=== PATIENT | female | born 1930 | race Caucasian/White ===

== ENCOUNTER 2017-12-07 18:46 | Inpatient (IN) ==
[2017-12-07] MEDS ORDERED: 0.9 % Sodium Chloride 500 ML IVC ONE ×2 (19:11→21:02)
--- NOTE | 2017-12-07 19:29 | Emergency Department Note ---
Disposition Clinical Impression: Pulmonary embolus Disposition: Admitted As Inpatient Condition: Fair Time of Disposition: 21:35 General Adult HPI - General Chief complaint: ED Dizziness Stated complaint: fell, SOB Time Seen by Provider: 12/07/17 18:58 Source: patient Limitations: altered mental status Nursing Notes Reviewed: Yes Vital Signs Reviewed: Yes - History of Present Illness HPI Narrative: Ms. Story was getting ready for bed tonight and bending over to get her night gown and she felt dizzy and fell. Since the fall she has had some right rib pain. She denies hitting her head or any other pain. She is a fair historian who is somewhat hard of hearing and appears to have possibly some underlying dementia as well. She can state her name but does not know the year. She does know her location and who the president is. She is not sure how long she has [facility] She believe she wears oxygen at home and that she might have a heart condition for which she takes a pill. She has had some mild chest pressure and a mild headache as well. She denies any palpitations abdominal pain cough fever chills nausea vomiting or diarrhea. She tells me that she has been chronically short of breath and no worse in recent days. Pain Scale: 0 - Related Data Home Medications Medication Instructions Recorded Confirmed Ascorbate Calcium [Vitamin C] 500 mg PO BID 12/07/17 12/07/17 Aspirin [Lo-Dose Aspirin EC] 81 mg PO DAILY 12/07/17 12/07/17 Cholecalciferol (D-3) [Vitamin D] 2,000 unit PO DAILY 12/07/17 12/07/17 Cyanocobalamin (Vitamin B-12) 100 mcg PO DAILY 12/07/17 12/07/17 [Vitamin B-12] Escitalopram [Lexapro] 20 mg PO DAILY 12/07/17 12/07/17 HYDROcodone/Acet 5/325 mg [[place] 1 tab PO BID 12/07/17 12/07/17 5-325 mg] Ipratropium/Albuterol Neb [Duoneb] 3 ml IH Q4HR 12/07/17 12/07/17 Magic Mouthwash 5 ml PO Q6H PRN 12/07/17 12/07/17 Mirtazapine [Remeron] 15 mg PO HS 12/07/17 12/07/17 OLANZapine [Zyprexa] 10 mg PO HS 12/07/17 12/07/17 Omeprazole [PriLOSEC] 20 mg PO DAILY 12/07/17 12/07/17 Potassium Chloride [K-Tab ER] 20 meq PO DAILY 12/07/17 12/07/17 Pramipexole Di-HCl [Pramipexole 1 mg PO HS 12/07/17 12/07/17 Dihydrochloride] Allergies Allergy/AdvReac Type Severity Reaction Status Date / Time No Known Allergies Allergy Verified 12/07/17 20:34 Limitations: ROS unobtainable due to patients medical condition (Limited secondary to hard of hearing and possible dementia) Constitutional: Denies: fever, chills Eyes: Denies: vision change ENT ED: Denies: dysphagia Cardiovascular: Reports: chest pain. Denies: palpitations Respiratory: Reports: dyspnea. Denies: cough Gastrointestinal: Denies: abdominal pain, nausea, vomiting, diarrhea Musculoskeletal: Reports: as per HPI (Ribs as per history of present illness which she believes are hurting since the fall) Neurological: Reports: as per HPI, headache Endocrine: Denies: fatigue Hematological/Lymphatic: Denies: easy bruising Past Medical History - Past Medical History Medical history: Reports: other - Social History Smoking Status: Unknown if ever smoked Smokeless Tobacco Status: No Alcohol use: Reports: none Drug use: Reports: none Physical Exam - General Limitations: no limitations General appearance: alert, in no apparent distress - Head Head exam: atraumatic, normocephalic - Eye Eye exam: Present: normal appearance. Absent: periorbital swelling, periorbital tenderness - ENT ENT exam: normal oropharynx, mucous membranes moist, TM's normal bilaterally, normal external ear exam - Neck Neck exam: Present: normal inspection. Absent: lymphadenopathy - Chest Chest inspection: Present: normal inspection, symmetric chest wall rise - Respiratory Respiratory exam: Present: other (Inspiratory crackles bilateral bases which clear somewhat with coughing.) - Cardiovascular Cardiovascular exam: Present: regular rate, normal rhythm, normal heart sounds. Absent: systolic murmur, diastolic murmur - Abdominal Exam Abdominal exam: Present: soft, Non-Tender - Extremities Exam Extremities exam: Present: normal inspection, pedal edema (Trace nonpitting edema bilateral ankles). Absent: calf tenderness (No cord swelling or erythema) - Back Exam Back exam: Present: normal inspection, other (Mild pain to palpation right lower lateral ribs no crepitus no step-off.) - Neurological Exam Neurological exam: Present: alert. Absent: oriented X3 - Psychiatric Psychiatric exam: Present: normal affect, normal mood - Skin Skin exam: Present: warm, dry, intact Course Vital Signs Temperature 98.5 F 12/07/17 18:48 Pulse Rate 115 12/07/17 18:48 Respiratory Rate 20 12/07/17 18:48 Blood Pressure 118/78 12/07/17 18:48 O2 Sat by Pulse Oximetry 94 12/07/17 18:48 Temperature 98.5 F 12/07/17 18:48 Pulse Rate 93 12/07/17 21:58 Respiratory Rate 14 12/07/17 21:58 Blood Pressure 102/63 12/07/17 21:58 O2 Sat by Pulse Oximetry 95 12/07/17 21:58 Oxygen Delivery Oxygen Delivery Nasal Cannula Medical Decision Making - MDM Narrative Medical decision making narrative: Pulmonary emboli. She is very stable from a respiratory standpoint on 2 L saturations mid 90s with no sign of respiratory distress. I did speak with her about heparin and the bleeding risk. She denies any easy bruising or bleeding. She did say that she saw some small amount of blood on the toilet tissue a couple of days ago. I spoke with the covering hospitalist here at [place] presented the case. He accepted admission. Her granddaughter joins us in the emergency department and tells me that she is the power of contracts attorney. I did ask her and Ms. Story to the best of her capacity if she were to have issues with breathing and would need to be placed on a ventilator and intubated. The granddaughter tells me that Ms. Story has an active DNR comfort care arrest DO NOT INTUBATE CODE STATUS and would not like any artificial intubation or ventilation or CPR or electric shock to restart her heart should it arrest. Ms. Story is resting comfortably in stable condition awaiting transfer to the floor. - Lab Data Lab results reviewed: Yes I reviewed the patient's lab results. Result diagrams: 12/07/17 19:20 12/07/17 19:20 Lab Results 01/20/18 01/20/18 01/20/18 Range/Units 19:20 19:20 19:20 WBC 7.2 (4.3-11.1) K/mcL RBC 3.91 (3.82-4.97) M/mcL Hgb 12.8 (11.5-15.4) g/dL Hct 38.8 (35.3-44.9) % MCV 99.2 (83.0-100.0) fL MCH 32.7 (28.0-33.3) pg MCHC 33.0 (31.6-35.5) g/dL RDW 14.8 H (11.5-14.5) % Plt Count 138 L (140-400) K/mcL MPV 10.4 (9.4-12.4) fL Immature Gran % 0.3 (0-4) % Seg Neutrophils % 78.9 % Lymphocytes % 10.2 % Monocytes % 10.5 % Eosinophils % 0.0 % Basophils % 0.1 % Neutrophils # 5.7 (1.6-8.9) K/mcL Lymphocytes # 0.7 (0.6-4.6) K/mcL Monocytes # 0.8 (0.0-1.3) K/mcL Eosinophils # 0.0 (0.0-0.6) K/mcL Basophils # 0.0 (0.0-0.2) K/mcL PT (9.4-12.1) Seconds INR APTT (26.0-36.0) Seconds D-Dimer 4600 H (0-500) ng/mLFEU Sodium 132 L (136-145) mEq/L Potassium 4.0 (3.5-5.1) mEq/L Chloride 102 (98-107) mEq/L Carbon Dioxide 24 (23-29) mEq/L BUN 16 (8-23) mg/dL Creatinine 0.72 (0.60-1.20) mg/dL Est GFR ( Amer) > 60 (> 60) Est GFR (Non-Af Amer) > 60 (> 60) BUN/Creatinine Ratio 22 (6-26) Glucose 131 H (70-105) mg/dL Calculated Osmolality 277 L (280-300) Calcium 8.6 (8.6-10.3) mg/dL Phosphorus 2.6 L (2.7-4.5) mg/dL Magnesium 1.9 (1.6-2.6) mg/dL Total Bilirubin 0.5 (0.3-1.0) mg/dL AST 18 (13-39) Units/L ALT 16 (7-52) Units/L Alkaline Phosphatase 61 (34-104) Units/L Troponin I (< 0.04) ng/mL B-Natriuretic Peptide (Less than 100) pg/mL Serum Total Protein 6.1 L (6.4-8.9) g/dL Albumin 3.3 L (3.5-5.7) g/dL Globulin 2.8 (2.4-3.5) g/dL Albumin/Globulin Ratio 1.2 (1.1-2.2) TSH (0.340-5.600) mcIU/mL 12/07/17 12/07/17 12/07/17 Range/Units 19:20 19:20 19:20 WBC (4.3-11.1) K/mcL RBC (3.82-4.97) M/mcL Hgb (11.5-15.4) g/dL Hct (35.3-44.9) % MCV (83.0-100.0) fL MCH (28.0-33.3) pg MCHC (31.6-35.5) g/dL RDW (11.5-14.5) % Plt Count (140-400) K/mcL MPV (9.4-12.4) fL Immature Gran % (0-4) % Seg Neutrophils % % Lymphocytes % % Monocytes % % Eosinophils % % Basophils % % Neutrophils # (1.6-8.9) K/mcL Lymphocytes # (0.6-4.6) K/mcL Monocytes # (0.0-1.3) K/mcL Eosinophils # (0.0-0.6) K/mcL Basophils # (0.0-0.2) K/mcL PT (9.4-12.1) Seconds INR APTT (26.0-36.0) Seconds D-Dimer (0-500) ng/mLFEU Sodium (136-145) mEq/L Potassium (3.5-5.1) mEq/L Chloride (98-107) mEq/L Carbon Dioxide (23-29) mEq/L BUN (8-23) mg/dL Creatinine (0.60-1.20) mg/dL Est GFR ( Amer) (> 60) Est GFR (Non-Af Amer) (> 60) BUN/Creatinine Ratio (6-26) Glucose (70-105) mg/dL Calculated Osmolality (280-300) Calcium (8.6-10.3) mg/dL Phosphorus (2.7-4.5) mg/dL Magnesium (1.6-2.6) mg/dL Total Bilirubin (0.3-1.0) mg/dL AST (13-39) Units/L ALT (7-52) Units/L Alkaline Phosphatase (34-104) Units/L Troponin I < 0.03 (< 0.04) ng/mL B-Natriuretic Peptide 114 H (Less than 100) pg/mL Serum Total Protein (6.4-8.9) g/dL Albumin (3.5-5.7) g/dL Globulin (2.4-3.5) g/dL Albumin/Globulin Ratio (1.1-2.2) TSH 3.199 (0.340-5.600) mcIU/mL 12/07/17 Range/Units 19:20 WBC (4.3-11.1) K/mcL RBC (3.82-4.97) M/mcL Hgb (11.5-15.4) g/dL Hct (35.3-44.9) % MCV (83.0-100.0) fL MCH (28.0-33.3) pg MCHC (31.6-35.5) g/dL RDW (11.5-14.5) % Plt Count (140-400) K/mcL MPV (9.4-12.4) fL Immature Gran % (0-4) % Seg Neutrophils % % Lymphocytes % % Monocytes % % Eosinophils % % Basophils % % Neutrophils # (1.6-8.9) K/mcL Lymphocytes # (0.6-4.6) K/mcL Monocytes # (0.0-1.3) K/mcL Eosinophils # (0.0-0.6) K/mcL Basophils # (0.0-0.2) K/mcL PT 13.5 H (9.4-12.1) Seconds INR 1.2 APTT 29.1 (26.0-36.0) Seconds D-Dimer (0-500) ng/mLFEU Sodium (136-145) mEq/L Potassium (3.5-5.1) mEq/L Chloride (98-107) mEq/L Carbon Dioxide (23-29) mEq/L BUN (8-23) mg/dL Creatinine (0.60-1.20) mg/dL Est GFR ( Amer) (> 60) Est GFR (Non-Af Amer) (> 60) BUN/Creatinine Ratio (6-26) Glucose (70-105) mg/dL Calculated Osmolality (280-300) Calcium (8.6-10.3) mg/dL Phosphorus (2.7-4.5) mg/dL Magnesium (1.6-2.6) mg/dL Total Bilirubin (0.3-1.0) mg/dL AST (13-39) Units/L ALT (7-52) Units/L Alkaline Phosphatase (34-104) Units/L Troponin I (< 0.04) ng/mL B-Natriuretic Peptide (Less than 100) pg/mL Serum Total Protein (6.4-8.9) g/dL Albumin (3.5-5.7) g/dL Globulin (2.4-3.5) g/dL Albumin/Globulin Ratio (1.1-2.2) TSH (0.340-5.600) mcIU/mL - Radiology Data Radiology results reviewed: Yes I reviewed the patient's radiology results. - EKG Data EKG #1 EKG attestation: Yes I reviewed and interpreted this EKG. EKG results narrative: EKG as interpreted by me sinus tachycardia 116 bpm. Left axis deviation. No evidence of hypertrophy. No significant ST elevations or depressions. No T- wave abnormalities. No comparison available.
[2017-12-07 19:32] LABS: Basophils % 0.1 %; Hematocrit 38.8 % (35.3-44.9); Hemoglobin 12.8 g/dL (11.5-15.4); Immature Granulocytes % 0.3 % (0-4); Lymphocytes # 0.7 K/mcL (0.6-4.6); Lymphocytes % 10.2 %; Mean Corpuscular Hemoglobin 32.7 pg (28.0-33.3); Mean Corpuscular Volume 99.2 fL (83.0-100.0); Mean Platelet Volume 10.4 fL (9.4-12.4); Monocytes # 0.8 K/mcL (0.0-1.3); Monocytes % 10.5 %; Neutrophils # 5.7 K/mcL (1.6-8.9); Platelet Count 138 K/mcL (140-400); Red Blood Count 3.91 M/mcL (3.82-4.97); Red Cell Distribution Width 14.8 % (11.5-14.5); Segmented Neutrophils % 78.9 %
[2017-12-07 19:49] LABS: Alanine Aminotransferase 16 Units/L (7-52); Albumin 3.3 g/dL (3.5-5.7); Albumin/Globulin Ratio 1.2 (1.1-2.2); Alkaline Phosphatase 61 Units/L (34-104); Aspartate Amino Transferase 18 Units/L (13-39); BUN/Creatinine Ratio 22 (6-26); Bilirubin,Total 0.5 mg/dL (0.3-1.0); Blood Urea Nitrogen 16 mg/dL (8-23); Calcium 8.6 mg/dL (8.6-10.3); Carbon Dioxide 24 mEq/L (23-29); Chloride 102 mEq/L (98-107); Globulin 2.8 g/dL (2.4-3.5); Glucose 131 mg/dL (70-105); Magnesium 1.9 mg/dL (1.6-2.6); Osmolality,Calculated 277 (280-300); Phosphorous 2.6 mg/dL (2.7-4.5); Sodium 132 mEq/L (136-145); Total Protein 6.1 g/dL (6.4-8.9); eGFR For African Americans > 60 (> 60); eGFR For Non-African Americans > 60 (> 60)
[2017-12-07 20:25] LABS: INR 1.2; Prothrombin Time 13.5 Seconds (9.4-12.1)
[2017-12-07 20:28] LABS: Activated Partial Thrombo Time 29.1 Seconds (26.0-36.0)
[2017-12-07] MEDS ORDERED: *HR* Heparin 5,000 UNIT/ML VIAL IVP ONE ×4 (21:36→22:45)
[2017-12-07] MEDS ORDERED: Heparin 25,000 UNIT/500 ML D5W 25,000 UNIT/500 ML BAG IVC SCH ×3 (21:45→22:45)
[2017-12-07] MEDS ORDERED: *HR* Heparin 5,000 UNIT/ML VIAL IVP PRN ×4 (22:14→22:45)
[2017-12-07] MEDS ORDERED: *HR* Warfarin 5 MG TABLET PO ONE ×2 (22:34→22:45)
[2017-12-07] MEDS ORDERED: Acetaminophen 325 MG TABLET PO PRN (22:45)
[2017-12-07] MEDS ORDERED: Ondansetron ODT 4 MG TAB.RAPDIS SL PRN (22:45)
[2017-12-07] MEDS ORDERED: Naloxone 0.4 MG/ML INJ IVP PRN (22:45)
[2017-12-07] MEDS: Heparin 25,000 UNIT/500 ML D5W 25,000 UNIT/500 ML BAG IVC SCH (23:15)
[2017-12-08] MEDS ORDERED: Ipratropium/Albuterol Neb 3 ML IH SCH
[2017-12-08] MEDS ORDERED: *HR* Heparin 5,000 UNIT/ML VIAL IVP ONE (00:39)
[2017-12-08] MEDS ORDERED: *HR* Heparin 5,000 UNIT/ML VIAL IVP PRN ×2 (00:39)
[2017-12-08] MEDS ORDERED: Naloxone 0.4 MG/ML INJ IVP PRN (00:39)
[2017-12-08] MEDS ORDERED: Ondansetron ODT 4 MG TAB.RAPDIS SL PRN (00:39)
[2017-12-08] MEDS ORDERED: *HR* Warfarin 5 MG TABLET PO ONE ×2 (00:39)
[2017-12-08] MEDS: Ipratropium/Albuterol Neb 3 ML IH SCH ×6 (05:24→23:46)
[2017-12-08 05:39] LABS: Basophils % 0.2 %; Eosinophils % 0.2 %; Hematocrit 33.7 % (35.3-44.9); Immature Granulocytes % 0.2 % (0-4); Lymphocytes # 1.4 K/mcL (0.6-4.6); Lymphocytes % 29.9 %; Mean Corpuscular HGB Conc 32.6 g/dL (31.6-35.5); Mean Corpuscular Hemoglobin 32.6 pg (28.0-33.3); Mean Platelet Volume 10.2 fL (9.4-12.4); Monocytes # 0.7 K/mcL (0.0-1.3); Monocytes % 14.3 %; Neutrophils # 2.6 K/mcL (1.6-8.9); Platelet Count 129 K/mcL (140-400); Red Blood Count 3.37 M/mcL (3.82-4.97); Red Cell Distribution Width 15.1 % (11.5-14.5); Segmented Neutrophils % 55.2 %
[2017-12-08 05:46] LABS: INR 1.3; Prothrombin Time 14.2 Seconds (9.4-12.1)
[2017-12-08 06:05] LABS: Platelet Estimate Normal (Normal)
--- NOTE | 2017-12-08 06:16 | Internal Med History&Physical ---
Date of Encounter: 12/08/17 Time of Encounter: 06:40 Assessment and Plan (1) Pulmonary embolus Current visit: Yes Status: Acute She has been placed on IV heparin and will begin coiumadin. She will stay at bed rest for 24 hours and will increase activity as tolerated, thereafter. She will need assessment of source and will need some assessment of possible causes. Since she's on heparin, we can't really check for Antithrombin III, Protein C and S but this seems unlikely to causes given her age. With that in mind, she should have an assessment for paraneoplastic etiology. This can be done mostly by her PCP. Qualifiers: Pulmonary embolism type: other Qualified Code(s): I26.99 - Other pulmonary embolism without acute cor pulmonale (2) Atrial fibrillation Current visit: Yes Status: Acute Aparrently choronic. Now in NSR. Qualifiers: Qualified Code(s): I48.91 - Unspecified atrial fibrillation (3) Vitamin D deficiency Current visit: Yes Status: Acute On supplementation.aaaaaaaaaaaaaaaaaaaaaaaaaaaaaaaaa (4) Osteoporosis Current visit: Yes Status: Acute Duration and Management is uncertain. Qualifiers: Qualified Code(s): M81.0 - Age-related osteoporosis without current pathological fracture Internal Medicine - H&P: HPI Chief complaint: Dyspnea and cough Admitted From: Home History of present illness: Ms. Story is a 87 year old female who fell at home after an episode of dizziness. She had been admitted to an ECF after hospitalization about two weeks ago for pneumonia. She had pain in her thight when she became dizzy. She was brought to [facility] ED and found to have multiple PE's. She had some right rib pin. She wears oxygen at the ECF and believes the stress of the fall made her more short of breath. She has no past history of any kind of blood clot. She is feeling much better this a.m. Past Med Surg Social Fam HX - Past Medical History Medical history: arthritis, atrial fibrillation, hyperlipidemia, osteoporosis, thyroid disease, other Psychiatric history: other - Past Surgical History Surgical History: cholecystectomy, other - Social History Smoking Status: Unknown if ever smoked Smokeless Tobacco Status: No Alcohol use: none Drug use: none - Family History Sister Living Status: Hx Family Cancer: Yes Mother Living Status: Hx Family Cancer: Yes Father Living Status: Hx Family Cardiac Disorders: Yes Internal Medicine - H&P: Meds Ascorbate Calcium [Vitamin C] 500 mg PO BID 12/07/17 [History] Aspirin [Lo-Dose Aspirin EC] 81 mg PO DAILY 12/07/17 [History] Cholecalciferol (D-3) [Vitamin D] 2,000 unit PO DAILY 12/07/17 [History] Cyanocobalamin (Vitamin B-12) [Vitamin B-12] 100 mcg PO DAILY 12/07/17 [History] Escitalopram [Lexapro] 20 mg PO DAILY 12/07/17 [History] HYDROcodone/Acet 5/325 mg [[place] 5-325 mg] 1 tab PO BID 12/07/17 [History] Ipratropium/Albuterol Neb [Duoneb] 3 ml IH Q4HR 12/07/17 [History] Magic Mouthwash 5 ml PO Q6H PRN 12/07/17 [History] Mirtazapine [Remeron] 15 mg PO HS 12/07/17 [History] OLANZapine [Zyprexa] 10 mg PO HS 12/07/17 [History] Omeprazole [PriLOSEC] 20 mg PO DAILY 12/07/17 [History] Potassium Chloride [K-Tab ER] 20 meq PO DAILY 12/07/17 [History] Pramipexole Di-HCl [Pramipexole Dihydrochloride] 1 mg PO HS 12/07/17 [History] 3 Allergy/AdvReac Type Severity Reaction Status Date / Time No Known Allergies Allergy Verified 12/07/17 20:34 All Systems PM: A 10-system review of systems was performed and is negative for pertinent findings except as documented above in the HPI. Review of systems: VERY HARD OF HEARING and difficult to obtain. - Constitutional Constitutional: as per HPI - EENT Ears: decreased hearing Nose, mouth and throat: as per HPI - Cardiovascular Cardiovascular ROS IM: chest pain Additional comments: Still at right ribcage but not pleuritic. - Respiratory Respiratory: as per HPI, cough, no dyspnea Additional comments: On oxygen. - Musculoskeletal Musculoskeletal ROS IM: no back pain - Constitutional Vitals: Temp Pulse Resp BP Pulse Ox 97.3 F L 82 18 117/77 97 12/08/17 04:00 12/08/17 04:00 12/08/17 04:00 12/08/17 04:00 12/08/17 04:00 General appearance: Present: A&O X 3 - Head Head exam: Present: atraumatic, normal inspection, normocephalic - Eye Eye exam: Present: EOMI, PERRL, conjuntiva pink, sclera anicteric. Absent: nystagmus - ENT ENT exam: Present: normal external ear exam, normal oropharynx Additional comments: VERY [place]. Edentulous. On Oxygen by nasal canula. - Neck Neck exam general surgery: Present: full ROM, supple, trachea midline. Absent: lymphadenopathy, thyromegaly - Respiratory Respiratory exam: Present: CTAB. Absent: accessory muscle use Additional comments: Marked kyphosis without scoliosis. - Cardiovascular Cardiovascular exam: Present: RRR. Absent: gallop, irregular rhythm, JVD, systolic murmur - GI/Abdominal GI/Abdominal exam: Present: normal bowel sounds. Absent: hyperactive bowel sounds, splenomegaly, tenderness - Extremities Exam Extremities exam: Present: full ROM, normal capillary refill, normal inspection , pedal edema, warm, radial pulses palpable and symmetrical. Absent: calf tenderness - Neurological Exam Neurological exam: Present: CN II-XII intact, oriented X3. Absent: facial droop , speech deficit - Psychiatric Psychiatric exam: Present: normal affect, normal mood. Absent: agitated - Skin Skin exam: Present: dry, warm. Absent: cyanosis Internal Med - H&P Results - Labs CBC & Chem 7: 12/08/17 05:30 12/07/17 19:20 Labs: Short CBC 12/08/17 Range/Units 05:30 WBC 4.8 (4.3-11.1) K/mcL Hgb 11.0 L D (11.5-15.4) g/dL Hct 33.7 L (35.3-44.9) % Plt Count 129 L (140-400) K/mcL Neutrophils # 2.6 (1.6-8.9) K/mcL - VTE Reasons for not Prescribing Prophylaxis: Not indicated-Anticoagulated or INR therapeutic Documentation of Mechanical Device: Graduated compression elastic hosiery
[2017-12-08 06:25] LABS: Activated Partial Thrombo Time 120.4 Seconds (26.0-36.0)
[2017-12-08] MEDS: Aspirin Enteric Coated 81 MG Tablet PO SCH (07:54)
[2017-12-08] MEDS ORDERED: Aspirin Enteric Coated 81 MG Tablet PO SCH (09:00)
[2017-12-08] MEDS ORDERED: *HR* Warfarin 5 MG TABLET PO SCH (18:00)
[2017-12-08] MEDS: *HR* Warfarin 5 MG TABLET PO SCH (18:05)
[2017-12-08] MEDS: Mirtazapine 15 MG TABLET PO SCH (20:05)
[2017-12-08] MEDS: OLANZapine 10 MG TAB.RAPDIS PO SCH (20:06)
[2017-12-08] MEDS ORDERED: Mirtazapine 15 MG TABLET PO SCH (21:00)
[2017-12-08] MEDS ORDERED: OLANZapine 10 MG TAB.RAPDIS PO SCH (21:00)
[2017-12-09] MEDS: Ipratropium/Albuterol Neb 3 ML IH SCH ×4 (03:48→20:59)
[2017-12-09] MEDS: Acetaminophen 325 MG TABLET PO PRN (04:44)
[2017-12-09 06:52] LABS: Eosinophils % 0.3 %; Hemoglobin 10.9 g/dL (11.5-15.4); Immature Granulocytes % 0.3 % (0-4); Lymphocytes # 0.9 K/mcL (0.6-4.6); Lymphocytes % 32.5 %; Mean Corpuscular Hemoglobin 32.6 pg (28.0-33.3); Mean Corpuscular Volume 98.8 fL (83.0-100.0); Mean Platelet Volume 10.7 fL (9.4-12.4); Monocytes # 0.5 K/mcL (0.0-1.3); Monocytes % 17.1 %; Neutrophils # 1.4 K/mcL (1.6-8.9); Platelet Count 152 K/mcL (140-400); Red Blood Count 3.34 M/mcL (3.82-4.97); Red Cell Distribution Width 14.9 % (11.5-14.5); Segmented Neutrophils % 49.8 %
[2017-12-09 07:07] LABS: BUN/Creatinine Ratio 14 (6-26); Blood Urea Nitrogen 8 mg/dL (8-23); Calcium 8.3 mg/dL (8.6-10.3); Carbon Dioxide 27 mEq/L (23-29); Chloride 103 mEq/L (98-107); Glucose 104 mg/dL (70-105); Osmolality,Calculated 283 (280-300); Potassium 3.5 mEq/L (3.5-5.1); Sodium 137 mEq/L (136-145); eGFR For African Americans > 60 (> 60); eGFR For Non-African Americans > 60 (> 60)
[2017-12-09] MEDS: Aspirin Enteric Coated 81 MG Tablet PO SCH (08:29)
[2017-12-09] MEDS: Heparin 25,000 UNIT/500 ML D5W 25,000 UNIT/500 ML BAG IVC SCH (12:27)
--- NOTE | 2017-12-09 13:05 | Internal Med Progress Note ---
Date of Encounter: 12/09/17 Time of Encounter: 13:03 - Assessment and plan (1) Chest pain Current Visit: Yes Status: Acute Assessment and plan: Echocardiogram complete. Chest pain resolved. Troponin normal. Will monitor Qualifiers: Chest pain type: unspecified Qualified Code(s): R07.9 - Chest pain, unspecified (2) Pulmonary embolus Current Visit: Yes Status: Acute Assessment and plan: Continue heparin drip. Will monitor Qualifiers: Pulmonary embolism type: other Qualified Code(s): I26.99 - Other pulmonary embolism without acute cor pulmonale (3) Atrial fibrillation Current Visit: Yes Status: Acute Assessment and plan: Continue on telemetry. Continue heparin drip. rate and rhythm currently stable Qualifiers: Qualified Code(s): I48.91 - Unspecified atrial fibrillation - Time Spent With Patient Greater than 35 minutes - Subjective Interval history: Patient reported episode of chest pain and shortness of breath through the night. EKG obtained and reviewed. Patient with irregular heart rhythm rate controlled around 90 ft./m. Maintaining oxygen saturation at 93% on 2 L per nasal cannula. Denies chest pain today. Denies shortness of breath today. No change in appetite. Denies fever, chills, nausea, vomiting, diarrhea. Reports patient has had chest pain and irregular heart rhythm off and on for several years. - Constitutional Vitals: Temp Pulse Resp BP Pulse Ox 97.9 F 93 14 98/62 93 12/09/17 08:00 12/09/17 08:00 12/09/17 08:00 12/09/17 08:00 12/09/17 08:00 General appearance: Present: A&O X 3 - Head Head exam: Present: atraumatic, normocephalic - Eye Eye exam: Present: PERRL, conjuntiva pink, sclera anicteric Pupils: Present: PERRL - Neck Neck exam general surgery: Present: supple, trachea midline. Absent: lymphadenopathy - Respiratory Respiratory exam: Present: CTAB. Absent: accessory muscle use, rales, rhonchi, wheezes - Cardiovascular Cardiovascular exam: Present: irregular rhythm, +S1, +S2. Absent: diastolic murmur, gallop, rubs, systolic murmur - GI/Abdominal GI/Abdominal exam: Present: normal bowel sounds, soft, no peritoneal signs. Absent: distended, tenderness - Extremities Exam Extremities exam: Present: warm, radial pulses palpable and symmetrical. Absent : calf tenderness, cyanotic, pedal edema Additional comments: Generalized weakness - Neurological Exam Neurological exam: Present: CN II-XII intact, oriented X3, no focal deficits. Absent: pronater drift, facial droop, speech deficit - Skin Skin exam: Present: dry, intact Internal Medicine: Result - Labs CBC & Chem 7: 12/09/17 06:16 12/09/17 06:16 Labs: Short CBC 12/09/17 Range/Units 06:16 WBC 2.9 L (4.3-11.1) K/mcL Hgb 10.9 L (11.5-15.4) g/dL Hct 33.0 L (35.3-44.9) % Plt Count 152 (140-400) K/mcL Neutrophils # 1.4 L (1.6-8.9) K/mcL BMP 12/09/17 06:16 Sodium 137 Potassium 3.5 Chloride 103 Carbon Dioxide 27 BUN 8 Creatinine 0.57 L Glucose 104 Calcium 8.3 L Cardiac Enzymes 12/09/17 Range/Units 10:12 Troponin I < 0.03 (< 0.04) ng/mL - ABG Interpretation ABG results: PT/INR, D-dimer PT 14.2 Seconds (9.4-12.1) H 12/08/17 05:30 D-Dimer 4600 ng/mLFEU (0-500) H 12/07/17 19:20 - Impressions Impressions Chest X-Ray 12/09/17 10:44 IMPRESSION: 1. Cardiomegaly without overt failure. 2. Small right pleural effusion with scattered areas of atelectasis. D/ / Robert Bermeo MD / Robert Bermeo MD Interpreting Provider: Robert Bermeo MD - VTE Reasons for not Prescribing Prophylaxis: Not indicated-Anticoagulated or INR therapeutic Documentation of Mechanical Device: Graduated compression elastic hosiery Consult Discharge Plan - Plan Referrals: Aakash Grimes MD [Primary Care Provider] - Porsha Sanchez MD [Family Provider] -
[2017-12-09 14:31] LABS: Heparin anti-factor XA UFH 0.65 IU/mL (0.30-0.70)
[2017-12-09 20:22] LABS: INR 1.4; Prothrombin Time 15.6 Seconds (9.4-12.1)
[2017-12-09] MEDS: *HR* Warfarin 5 MG TABLET PO SCH (20:59)
[2017-12-09] MEDS: OLANZapine 10 MG TAB.RAPDIS PO SCH (21:00)
[2017-12-09] MEDS: Mirtazapine 15 MG TABLET PO SCH (21:00)
[2017-12-10] MEDS: Ipratropium/Albuterol Neb 3 ML IH SCH ×6 (00:37→20:13)
[2017-12-10] MEDS: Aspirin Enteric Coated 81 MG Tablet PO SCH (09:15)
[2017-12-10] MEDS: Heparin 25,000 UNIT/500 ML D5W 25,000 UNIT/500 ML BAG IVC SCH (09:16)
--- NOTE | 2017-12-10 11:01 | Internal Med Progress Note ---
Date of Encounter: 12/10/17 Time of Encounter: 10:59 - Assessment and plan (1) Pulmonary embolus Current Visit: Yes Status: Acute Assessment and plan: Continue heparin drip. Will monitor Qualifiers: Pulmonary embolism type: other Qualified Code(s): I26.99 - Other pulmonary embolism without acute cor pulmonale (2) Atrial fibrillation Current Visit: Yes Status: Acute Assessment and plan: Continue on telemetry. Continue heparin drip. rate and rhythm currently stable Qualifiers: Atrial fibrillation type: unspecified Qualified Code(s): I48.91 - Unspecified atrial fibrillation - Time Spent With Patient less than 15 minutes - Subjective Interval history: Patient Denies shortness of breath or chest pain. c/o nonprod cough. No change in appetite. Denies fever, chills, nausea, vomiting, diarrhea. - Constitutional Vitals: Temp Pulse Resp BP Pulse Ox 98.2 F 95 16 115/70 97 12/10/17 07:24 12/10/17 07:24 12/10/17 07:24 12/10/17 07:24 12/10/17 07:24 General appearance: Present: A&O X 3, no acute distress, answers questions appropriately Exam: NEZ PERCE - Head Head exam: Present: atraumatic, normocephalic - Eye Eye exam: Present: PERRL, conjuntiva pink, sclera anicteric Pupils: Present: PERRL - Neck Neck exam general surgery: Present: supple, trachea midline. Absent: lymphadenopathy - Respiratory Respiratory exam: Present: CTAB. Absent: accessory muscle use, rales, rhonchi, wheezes - Cardiovascular Cardiovascular exam: Present: irregular rhythm, +S1, +S2. Absent: diastolic murmur, gallop, rubs, systolic murmur - GI/Abdominal GI/Abdominal exam: Present: normal bowel sounds, soft, no peritoneal signs. Absent: distended, tenderness - Extremities Exam Extremities exam: Present: warm, radial pulses palpable and symmetrical. Absent : calf tenderness, cyanotic, pedal edema - Neurological Exam Neurological exam: Present: CN II-XII intact, oriented X3, no focal deficits. Absent: pronater drift, facial droop, speech deficit - Skin Skin exam: Present: dry, intact Internal Medicine: Result - Labs CBC & Chem 7: 12/09/17 06:16 12/09/17 06:16 - ABG Interpretation ABG results: PT/INR, D-dimer PT 15.6 Seconds (9.4-12.1) H 12/09/17 19:55 D-Dimer 4600 ng/mLFEU (0-500) H 12/07/17 19:20 - Impressions Impressions Chest X-Ray 12/09/17 10:44 IMPRESSION: 1. Cardiomegaly without overt failure. 2. Small right pleural effusion with scattered areas of atelectasis. D/ / Robert Bermeo MD / Robert Bermeo MD Interpreting Provider: Robert Bermeo MD - VTE Reasons for not Prescribing Prophylaxis: Not indicated-Anticoagulated or INR therapeutic Documentation of Mechanical Device: Graduated compression elastic hosiery Consult Discharge Plan - Plan Referrals: Porsha Sanchez MD [Family Provider] - Aakash Grimes MD [Primary Care Provider] -
[2017-12-10] MEDS: Mirtazapine 15 MG TABLET PO SCH (20:12)
[2017-12-10] MEDS: OLANZapine 10 MG TAB.RAPDIS PO SCH (20:12)
[2017-12-10 20:27] LABS: INR 1.9; Prothrombin Time 20.2 Seconds (9.4-12.1)
[2017-12-10] MEDS: *HR* Warfarin 5 MG TABLET PO SCH (21:40)
[2017-12-11] MEDS: Ipratropium/Albuterol Neb 3 ML IH SCH ×6 (04:03→20:42)
[2017-12-11] MEDS: Heparin 25,000 UNIT/500 ML D5W 25,000 UNIT/500 ML BAG IVC SCH (07:45)
--- NOTE | 2017-12-11 07:52 | Electrocardiograph Report ---
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
--- NOTE | 2017-12-11 07:56 | Electrocardiograph Report ---
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
[2017-12-11] MEDS: Aspirin Enteric Coated 81 MG Tablet PO SCH (08:52)
[2017-12-11 10:40] LABS: Basophils % 0.6 %; Hematocrit 37.5 % (35.3-44.9); Hemoglobin 12.1 g/dL (11.5-15.4); Lymphocytes % 54.7 %; Mean Corpuscular HGB Conc 32.3 g/dL (31.6-35.5); Mean Corpuscular Hemoglobin 32.2 pg (28.0-33.3); Mean Corpuscular Volume 99.7 fL (83.0-100.0); Mean Platelet Volume 10.3 fL (9.4-12.4); Monocytes # 0.2 K/mcL (0.0-1.3); Monocytes % 13.4 %; Neutrophils # 0.6 K/mcL (1.6-8.9); Platelet Count 179 K/mcL (140-400); Red Blood Count 3.76 M/mcL (3.82-4.97); Red Cell Distribution Width 14.8 % (11.5-14.5); Segmented Neutrophils % 31.3 %
[2017-12-11 10:59] LABS: Anisocytosis 1+ (Not Present)
--- NOTE | 2017-12-11 11:40 | Internal Med Progress Note ---
Date of Encounter: 12/11/17 Time of Encounter: 11:37 - Assessment and plan (1) Pulmonary embolus Current Visit: Yes Status: Acute Qualifiers: Pulmonary embolism type: other Qualified Code(s): I26.99 - Other pulmonary embolism without acute cor pulmonale (2) Atrial fibrillation Current Visit: Yes Status: Acute Qualifiers: Atrial fibrillation type: unspecified Qualified Code(s): I48.91 - Unspecified atrial fibrillation - Subjective Interval history: Patient Denies shortness of breath or chest pain. c/o nonprod cough. No change in appetite. Denies fever, chills, nausea, vomiting, diarrhea. CXR + forBUL PNA versus atelectasis. will start augmentin and repeat labs. - Constitutional Vitals: Temp Pulse Resp BP Pulse Ox 99.0 F 83 16 104/66 98 12/11/17 07:37 12/11/17 07:37 12/11/17 07:37 12/11/17 07:37 12/11/17 07:37 General appearance: Present: A&O X 3, no acute distress, answers questions appropriately Exam: hard of hearing. - Head Head exam: Present: atraumatic, normocephalic - Eye Eye exam: Present: PERRL, conjuntiva pink, sclera anicteric Pupils: Present: PERRL - Neck Neck exam general surgery: Present: supple, trachea midline. Absent: lymphadenopathy - Respiratory Respiratory exam: Present: rhonchi. Absent: accessory muscle use, rales, wheezes Additional comments: rhonchi BUL. - Cardiovascular Cardiovascular exam: Present: RRR, +S1, +S2. Absent: diastolic murmur, gallop, rubs, systolic murmur - GI/Abdominal GI/Abdominal exam: Present: normal bowel sounds, soft, no peritoneal signs. Absent: distended, tenderness - Extremities Exam Extremities exam: Present: warm, radial pulses palpable and symmetrical. Absent : calf tenderness, cyanotic, pedal edema - Neurological Exam Neurological exam: Present: CN II-XII intact, oriented X3, no focal deficits. Absent: pronater drift, facial droop, speech deficit - Skin Skin exam: Present: dry, intact Internal Medicine: Result - Labs CBC & Chem 7: 12/11/17 10:33 12/09/17 06:16 Labs: Short CBC 12/11/17 Range/Units 10:33 WBC 1.8 L (4.3-11.1) K/mcL Hgb 12.1 (11.5-15.4) g/dL Hct 37.5 (35.3-44.9) % Plt Count 179 (140-400) K/mcL Neutrophils # 0.6 L (1.6-8.9) K/mcL - ABG Interpretation ABG results: PT/INR, D-dimer PT 22.0 Seconds (9.4-12.1) H 12/11/17 04:15 D-Dimer 4600 ng/mLFEU (0-500) H 12/07/17 19:20 - Impressions Impressions Chest X-Ray 12/11/17 13:14 IMPRESSION: Increasing bilateral upper lobe atelectasis or pneumonia. D/ / Tom Freitas MD / Tom Freitas MD Interpreting Provider: Tom Freitas MD - VTE Reasons for not Prescribing Prophylaxis: Not indicated-Anticoagulated or INR therapeutic Documentation of Mechanical Device: Graduated compression elastic hosiery Consult Discharge Plan - Plan Referrals: Porsha Sanchez MD [Family Provider] - Aakash Grimes MD [Primary Care Provider] -
[2017-12-11 12:39] LABS: BUN/Creatinine Ratio 12 (6-26); Blood Urea Nitrogen 8 mg/dL (8-23); Calcium 8.5 mg/dL (8.6-10.3); Carbon Dioxide 30 mEq/L (23-29); Chloride 104 mEq/L (98-107); Glucose 106 mg/dL (70-105); Osmolality,Calculated 287 (280-300); Sodium 139 mEq/L (136-145); eGFR For African Americans > 60 (> 60); eGFR For Non-African Americans > 60 (> 60)
[2017-12-11 17:03] LABS: INR 2.2; Prothrombin Time 24.4 Seconds (9.4-12.1)
[2017-12-11] MEDS: *HR* Warfarin 5 MG TABLET PO SCH (17:17)
[2017-12-11] MEDS: Mirtazapine 15 MG TABLET PO SCH (20:47)
[2017-12-11] MEDS: OLANZapine 10 MG TAB.RAPDIS PO SCH (20:48)
[2017-12-12] MEDS: Ipratropium/Albuterol Neb 3 ML IH SCH ×4 (00:07→13:37)
[2017-12-12] MEDS: Acetaminophen 325 MG TABLET PO PRN (00:14)
[2017-12-12] MEDS: Aspirin Enteric Coated 81 MG Tablet PO SCH (09:02)
[2017-12-12 09:14] VITALS: BP 98/55
--- NOTE | 2017-12-12 11:26 | Discharge Summary ---
Date of Encounter: 12/12/17 Time of Encounter: 11:24 - Discharge Diagnosis (1) Pulmonary embolus Priority: Primary Status: Acute Comments: Mrs. Stoyr is stable eating well. Not short of breath. She does occasionally have some intermittent atrial fib. But she is now on warfarin and will stop the drip. So we will send her back to the ECF. And informing them to please follow her INR Qualifiers: Pulmonary embolism type: other Qualified Code(s): I26.99 - Other pulmonary embolism without acute cor pulmonale (2) Atrial fibrillation Priority: Secondary Status: Acute Comments: Occasional bouts of some irregular rhythm its probably atrial fib but patient's vital signs are stable Qualifiers: Atrial fibrillation type: unspecified Qualified Code(s): I48.91 - Unspecified atrial fibrillation - Discharge Medications Home Medications: Ascorbate Calcium [Vitamin C] 500 mg PO BID 12/07/17 [History] Aspirin [Lo-Dose Aspirin EC] 81 mg PO DAILY 12/07/17 [History] Cholecalciferol (D-3) [Vitamin D] 2,000 unit PO DAILY 12/07/17 [History] Cyanocobalamin (Vitamin B-12) [Vitamin B-12] 100 mcg PO DAILY 12/07/17 [History] Escitalopram [Lexapro] 20 mg PO DAILY 12/07/17 [History] HYDROcodone/Acet 5/325 mg [[place] 5-325 mg] 1 tab PO BID 12/07/17 [History] Ipratropium/Albuterol Neb [Duoneb] 3 ml IH Q4HR 12/07/17 [History] Magic Mouthwash 5 ml PO Q6H PRN 12/07/17 [History] Mirtazapine [Remeron] 15 mg PO HS 12/07/17 [History] OLANZapine [Zyprexa] 10 mg PO HS 12/07/17 [History] Omeprazole [PriLOSEC] 20 mg PO DAILY 12/07/17 [History] Potassium Chloride [K-Tab ER] 20 meq PO DAILY 12/07/17 [History] Pramipexole Di-HCl [Pramipexole Dihydrochloride] 1 mg PO HS 12/07/17 [History] Warfarin 5 mg PO DAILY 12/12/17 [History] Allergies/Adverse Reactions: 3 Allergy/AdvReac Type Severity Reaction Status Date / Time No Known Allergies Allergy Verified 12/07/17 20:34 Date of admission: 12/08/17 09:05 Primary care physician: Aakash Grimes MD Discharging clinician: Taj Mccullough Anticipated date of discharge: 12/12/17 - Patient Status Disposition: Transfer SNF Condition: Fair Functional capacity at discharge: uses cane/walker Overall status at discharge: patient is progressing back to baseline - Discharge Instructions Follow Up With: Porsha Sanchez MD [Family Provider] - Aakash Grimes MD [Primary Care Provider] - - Diet and Activity Activity: resume usual activities as tolerated Diet: advance to your usual diet Interval History: This was was admitted for shortness of breath and CT showed at least 3 pulmonary emboli. Vital signs were stable Hospital course: Ms. Story is a 87 year old female Patient is really done well she is eating she is now therapeutic with the greater than 2 INR and she [facility] be [facility]. Patient does have some intermittent atrial fib and this will need to be followed. - Time Spent with Patient Total time spent providing and/or coordinating discharge services: Less than 30 minutes - Constitutional Vitals: Temp Pulse Resp BP Pulse Ox 97.0 F L 80 16 98/55 95 12/12/17 08:00 12/12/17 08:00 12/12/17 08:00 12/12/17 08:00 12/12/17 08:00 General appearance: Present: A&O X 3, no acute distress, answers questions appropriately - Head Head exam: Present: atraumatic, normocephalic - Respiratory Respiratory exam: Present: CTAB, tachypnea. Absent: accessory muscle use, rales , rhonchi, wheezes Additional comments: Patient does have occasional increase in heart rate up to around 100. - Cardiovascular Cardiovascular exam: Present: RRR, +S1, +S2. Absent: diastolic murmur, gallop, rubs, systolic murmur - VTE Reasons for not Prescribing Prophylaxis: Not indicated-Anticoagulated or INR therapeutic Documentation of Mechanical Device: Graduated compression elastic hosiery
--- NOTE | 2017-12-12 11:38 | Physician Discharge Referral ---
[facility] Referral Info Transfer To: ECF Provider in Charge after Transfer: PCP Institutional Level of Care: Skilled - Diagnosis (1) Pulmonary embolus Priority: Primary Status: Acute (2) Atrial fibrillation Priority: Secondary Status: Acute Expected Duration of Placement: >99 mos Prognosis: Fair Aware of Diagnosis: Family Aware of Prognosis: Family - Transfer Medications Home Medications: Ascorbate Calcium [Vitamin C] 500 mg PO BID 12/07/17 [History] Aspirin [Lo-Dose Aspirin EC] 81 mg PO DAILY 12/07/17 [History] Cholecalciferol (D-3) [Vitamin D] 2,000 unit PO DAILY 12/07/17 [History] Cyanocobalamin (Vitamin B-12) [Vitamin B-12] 100 mcg PO DAILY 12/07/17 [History] Escitalopram [Lexapro] 20 mg PO DAILY 12/07/17 [History] HYDROcodone/Acet 5/325 mg [[place] 5-325 mg] 1 tab PO BID 12/07/17 [History] Ipratropium/Albuterol Neb [Duoneb] 3 ml IH Q4HR 12/07/17 [History] Magic Mouthwash 5 ml PO Q6H PRN 12/07/17 [History] Mirtazapine [Remeron] 15 mg PO HS 12/07/17 [History] OLANZapine [Zyprexa] 10 mg PO HS 12/07/17 [History] Omeprazole [PriLOSEC] 20 mg PO DAILY 12/07/17 [History] Potassium Chloride [K-Tab ER] 20 meq PO DAILY 12/07/17 [History] Pramipexole Di-HCl [Pramipexole Dihydrochloride] 1 mg PO HS 12/07/17 [History] Warfarin 5 mg PO DAILY 12/12/17 [History] Allergies/Adverse Reactions: 3 Allergy/AdvReac Type Severity Reaction Status Date / Time No Known Allergies Allergy Verified 12/07/17 20:34 - Respiratory Orders Smoking Cessation: Smoking cessation has been advised. For more information, call the [place] Tobacco Quit Line at 3-200-MZEJ-NOW. - Lab Orders Lab Orders: 2 Step Mantoux Test per State regulation, CBC, Other (include drug levels w/frequency) - Advance Directives Living Will: Yes Power of [employer] Engineer: Yes Code Status: DNR-Arrest - Mobility Orders Ambulate - Rehabiliation Orders Rehab Potential: Fair Rehab Orders: Evaluation for Physical Therapy - Diet Orders No Concentrated Sweets CERTIFICATION: I certify that the transfer of the above named patient to an Extended Care Facility is necessary for the continuing treatment of the diagnosis listed. The above information is true and accurate reflection of patient's current condition. Confidential - Redisclosure prohibited without a patient's written consent.
--- NOTE | 2017-12-12 16:25 | Event Note ---
Date of Encounter: 12/12/17 Time of Encounter: 16:24 Patient currently is being discharged from facility. Patient's chest x-ray was reviewed and shows continued pneumonia. Patient currently on Augmentin and will provide a prescription at time of discharge for continued treatment for the next 10 days. Patient currently denies any shortness of breath or productive cough. Denies fever/chills.
== END 2017-12-12 17:30 | DRG 175 ==
LOC: INPGRE 18:46 → EMEROOGRE 18:46 → INPGRE 23:10 → EMEROOGRE 23:10